=== PATIENT | female | born 2000 | race Caucasian/White ===

== ENCOUNTER 2021-09-16 11:49 | Emergency (ER) | payer SELFPAY | END 2021-09-16 17:00 | disposition home or self-care (01) | LOC: MW.ED 11:49 | DX: R07.81 Pleurodynia (principal) | CPT/HCPCS: 71045; 71045-26; 73030-26-RT; 73030-RT; 73060-26-RT; 73060-RT; 73562-26-RT; 73562-RT; 81001; 81025; 99283-25 ==

== ENCOUNTER 2022-01-11 09:24 | Emergency (ER) | payer SELFPAY | END 2022-01-11 10:28 | disposition home or self-care (01) | LOC: MW.ED 09:24 | DX: L01.00 Impetigo, unspecified (principal); Z86.16 Personal history of COVID-19 | CPT/HCPCS: 99282 ==

== ENCOUNTER 2022-04-05 13:58 | Emergency (ER) | payer SELFPAY | END 2022-04-05 18:20 | disposition home or self-care (01) | LOC: MW.ED 13:58 | DX: S89.92XA Unspecified injury of left lower leg, initial encounter (principal); Z87.828 Personal history of other (healed) physical injury and trauma | CPT/HCPCS: 73562-26-LT; 73562-LT; 99283 ==

== ENCOUNTER 2022-06-13 13:00 | Emergency (ER) | payer SELFPAY ==
[2022-06-13 14:22] LABS: CORONAVIRUS COVID-19 NAA NEGATIVE (NEGATIVE); INFLUENZA A NAA NEGATIVE (NEGATIVE); INFLUENZA B NAA NEGATIVE (NEGATIVE)
== END 2022-06-13 14:34 | disposition home or self-care (01) ==
LOC: MW.ED 13:00
DX: J06.9 Acute upper respiratory infection, unspecified (principal); Z20.822 Contact with and (suspected) exposure to COVID-19
CPT/HCPCS: 0240U; 99283

== ENCOUNTER 2022-10-13 15:43 | Emergency (ER) | payer SELFPAY ==
[2022-10-13 17:04] LABS: BLOOD UREA NITROGEN,BUN 9 mg/dL (7.0-18.0); CARBON DIOXIDE,CO2 23.7 mmol/L (21.0-32.0); CHLORIDE,CL 101 mmol/L (98-107); GLUCOSE RANDOM 97 mg/dL (74-106); POTASSIUM,K 3.9 mmol/L (3.5-5.1); SODIUM,NA 136 mmol/L (136-145)
[2022-10-13 17:08] LABS: ESTIMATED GFR 134 mL/min (>60)
== END 2022-10-14 01:04 | disposition left against medical advice (07) ==
LOC: MW.ED 15:43
DX: O20.0 Threatened abortion (principal); Z3A.01 Less than 8 weeks gestation of pregnancy
CPT/HCPCS: 36415; 76817; 76817-26; 80053; 81001; 84702; 85025; 86900; 86901; 99284

== ENCOUNTER 2023-05-04 13:38 | Emergency (ER) | payer MEDICAID ==
[2023-05-04] MEDS ORDERED: Tetracaine HCl/PF 0.5% 4 ML Bottle EYERT ONE (13:58)
== END 2023-05-04 14:42 | disposition home or self-care (01) ==
LOC: MW.ED 13:38
DX: H57.11 Ocular pain, right eye (principal); Z86.16 Personal history of COVID-19
CPT/HCPCS: 99283; J3490

== ENCOUNTER 2023-05-09 09:35 | Emergency (ER) | payer MEDICAID ==
[2023-05-09 10:46] LABS: CORONAVIRUS COVID-19 NAA NEGATIVE (NEGATIVE); INFLUENZA A NAA NEGATIVE (NEGATIVE); INFLUENZA B NAA NEGATIVE (NEGATIVE)
== END 2023-05-09 11:15 | disposition home or self-care (01) ==
LOC: MW.ED 09:35
DX: J02.9 Acute pharyngitis, unspecified (principal); Z86.16 Personal history of COVID-19; Z20.822 Contact with and (suspected) exposure to COVID-19
CPT/HCPCS: 0240U; 87651; 99283

== ENCOUNTER 2023-05-24 05:15 | Inpatient (IN) | payer MEDICAID ==
[~2023-05-24 05:15] MED LIST: Acetaminophen/oxyCODONE 325-5 MG Tab PO PRN; Albuterol 0.083% 2.5 MG/3 ML Neb Soln NEB PRN; HYDROmorphone 1 MG/ML Syringe IVPUSH PRN; Metoclopramide 10 MG/2 ML SDV IVPUSH PRN; Morphine 2 MG/ML SYRINGE IVPUSH PRN; Naloxone 0.4 MG/ML SDV IVPUSH PRN; Ondansetron 4 MG/2 ML SDV IVPUSH PRN; diphenhydrAMINE 50 MG/ML SDV IVPUSH PRN; droPERidol 5 MG/2 ML SDV IVPUSH PRN; ePHEDrine 50 MG/ML SDV IVPUSH PRN; fentaNYL 100 MCG/2 ML SDV IVPUSH PRN; fentaNYL 50 MCG/ML SDV IVPUSH PRN
[2023-05-24] MEDS ORDERED: Sodium Chloride 0.9% 2.5 ML Syringe FLUSH PRN (05:25)
[2023-05-24] MEDS ORDERED: Citric Acid/Sodium Citrate Solution 30 ML Cup PO ONE (05:25)
[2023-05-24] MEDS ORDERED: Sodium Chloride 0.9% 10 ML Syringe FLUSH PRN (05:25)
[2023-05-24] MEDS ORDERED: Sodium Chloride 0.9% 20 ML SDV IV PRN (05:25)
[2023-05-24] MEDS ORDERED: Lactated Ringers 1,000 ML IV SCH ×2 (05:30→10:30)
[2023-05-24] MEDS ORDERED: Oxytocin/0.9 % Sodium Chloride 30 UNIT/500 ML BAG IV SCH ×2 (05:30→10:30)
[2023-05-24] MEDS ORDERED: ceFAZolin 3 GM in Dextrose 5% in Water 100 ML IV ONE ×2 (05:32)
[2023-05-24 07:02] LABS: MEAN CORPUSCULAR HEMOGLOBIN 27.9 pg (28.0-32.0); MEAN CORPUSCULAR HGB CONC 34.4 g/dL (32.0-36.0); MEAN CORPUSCULAR VOLUME 81.2 fL (83.0-99.0); MEAN PLATELET VOLUME 10.2 fL (9.4-12.3); PLATELET COUNT,PLT 283 K/uL (150-400); RED BLOOD CELL COUNT 3.94 M/uL (4.10-5.30)
[2023-05-24] MEDS ORDERED: Lidocaine 2% 5 ML SDV ONE (07:10)
[2023-05-24] MEDS ORDERED: droPERidol 5 MG/2 ML SDV ONE (07:10)
[2023-05-24] MEDS ORDERED: Phenylephrine 1% 10 MG/ML SDV ONE (07:10)
[2023-05-24] MEDS ORDERED: ceFAZolin 1 GM Vial ONE (07:10)
[2023-05-24] MEDS ORDERED: Dexamethasone 4 MG/ML 5 ML MDV ONE (07:10)
[2023-05-24] MEDS ORDERED: Ropivacaine 0.5% 5 MG/ML 30 ML SDV ONE (07:10)
[2023-05-24] MEDS ORDERED: Ondansetron 4 MG/2 ML SDV ONE (07:10)
[2023-05-24] MEDS ORDERED: Ketorolac 30 MG/ML SDV ONE ×2 (07:10→07:16)
[2023-05-24] MEDS ORDERED: Morphine PF 10 MG/10 ML SDV ONE (07:11)
[2023-05-24] MEDS ORDERED: fentaNYL 100 MCG/2 ML SDV ONE (07:11)
[2023-05-24] MEDS ORDERED: Oxytocin 10 Units/1 ML SDV ONE ×2 (07:15→08:02)
[2023-05-24] MEDS ORDERED: Acetaminophen/oxyCODONE 325-5 MG Tab PO PRN ×3 (07:40→10:19)
[2023-05-24] MEDS ORDERED: ePHEDrine 50 MG/ML SDV IVPUSH PRN (07:40)
[2023-05-24] MEDS ORDERED: fentaNYL 100 MCG/2 ML SDV IVPUSH PRN (07:40)
[2023-05-24] MEDS ORDERED: Ondansetron 4 MG/2 ML SDV IVPUSH PRN ×2 (07:40→10:19)
[2023-05-24] MEDS ORDERED: diphenhydrAMINE 50 MG/ML SDV IVPUSH PRN ×2 (07:40→10:19)
[2023-05-24] MEDS ORDERED: Lanolin 100% Cream 7 GM Tube TOP PRN (10:19)
[2023-05-24] MEDS ORDERED: Methylergonovine 0.2 MG/1 ML Amp IM PRN (10:19)
[2023-05-24] MEDS ORDERED: Misoprostol 200 MCG Tab RECTAL PRN (10:19)
[2023-05-24] MEDS ORDERED: Oxytocin 10 Units/1 ML SDV IM PRN (10:19)
[2023-05-24] MEDS ORDERED: Bisacodyl 10 MG Supp RECTAL PRN (10:19)
[2023-05-24] MEDS: Ketorolac 30 MG/ML SDV IVPUSH SCH ×2 (14:09→20:00)
[2023-05-24] MEDS: Acetaminophen 1,000 MG in Premix Bag 1 BAG IV SCH ×2 (14:10→20:05)
[2023-05-24] MEDS: Docusate Sodium 100 MG Cap PO SCH (20:11)
[2023-05-25] MEDS: Ketorolac 30 MG/ML SDV IVPUSH SCH ×3 (02:25→15:37)
[2023-05-25] MEDS: Acetaminophen 1,000 MG in Premix Bag 1 BAG IV SCH (02:28)
[2023-05-25 06:27] LABS: HEMATOCRIT 30.5 % (37.0-47.0); HEMOGLOBIN 10.3 g/dL (12.0-16.0)
[2023-05-25] MEDS: Docusate Sodium 100 MG Cap PO SCH ×2 (08:21→20:02)
[2023-05-25] MEDS: Ibuprofen 800 MG Tab PO PRN (18:30)
[2023-05-26] MEDS: Ibuprofen 800 MG Tab PO PRN (04:39)
[2023-05-26] MEDS: Docusate Sodium 100 MG Cap PO SCH (09:21)
== END 2023-05-26 11:50 | disposition home or self-care (01) | DRG 788 ==
LOC: MW.OB 05:15
PROVIDERS: ADMIT Obstetrics & Gynecology; ATTEND Obstetrics & Gynecology
PROC: 10D00Z1 Extraction of Products of Conception, Low, Open Approach (ICD-10-PCS; principal; 2023-05-24 08:00)
DX: O34.211 Maternal care for low transverse scar from previous cesarean delivery (principal); Z3A.39 39 weeks gestation of pregnancy; Z37.0 Single live birth
CPT/HCPCS: 36415; 59025; 85014; 85018; 85027; 86592; 86850; 86900; 86901; A9270-GY; J0131; J0690; J1100; J1200; J1790; J1885; J2274; J2371; J2405; J2590; J2795; J3010; J3490; J7120

== ENCOUNTER 2023-09-18 16:40 | Emergency (ER) | payer MEDICAID | END 2023-09-18 17:56 | disposition left against medical advice (07) | LOC: MW.ED 16:40 | DX: Z53.21 Procedure and treatment not carried out due to patient leaving prior to being seen by health care provider (principal) ==

== ENCOUNTER 2024-10-20 09:35 | Emergency (ER) | payer MEDICAID ==
[2024-10-20] MEDS: Dexamethasone 4 MG Tab PO STA (10:41)
== END 2024-10-20 11:21 | disposition home or self-care (01) ==
LOC: MW.ED 09:35
DX: J39.9 Disease of upper respiratory tract, unspecified (principal); Z75.8 Other problems related to medical facilities and other health care; Z79.899 Other long term (current) drug therapy; Z86.16 Personal history of COVID-19
CPT/HCPCS: 87428; 99283; J8540

== ENCOUNTER 2024-11-15 18:10 | Emergency (ER) | payer MEDICAID ==
[2024-11-15 19:17] LABS: APPEARANCE,URINE CLEAR; GLUCOSE,URINE NEGATIVE (NEGATIVE); KETONES,URINE 15 mg/dL (NEGATIVE); LEUKOCYTE ESTERASE,URINE NEGATIVE (NEGATIVE); NITRITE,URINE NEGATIVE (NEGATIVE); OCCULT BLOOD,URINE NEGATIVE (NEGATIVE); PROTEIN,URINE NEGATIVE (NEGATIVE)
[2024-11-15 19:23] LABS: BILIRUBIN,URINE SMALL (NEGATIVE)
[2024-11-15 19:24] LABS: COLOR,URINE DARK YELLOW
[2024-11-15] MEDS: Cyclobenzaprine 10 MG Tab PO ONE (20:15)
[2024-11-15] MEDS: Ibuprofen 600 MG Tab PO ONE (20:16)
== END 2024-11-15 21:30 | disposition home or self-care (01) ==
LOC: MW.ED 18:10
DX: M54.40 Lumbago with sciatica, unspecified side (principal); Z79.899 Other long term (current) drug therapy
CPT/HCPCS: 81003; 81025; 99283; A9270

== ENCOUNTER 2025-01-15 17:50 | Emergency (ER) | payer MEDICAID ==
[2025-01-15] MEDS: cefTRIAXone 500 MG in Lidocaine 1% 1 ML IM ONE (19:30)
[2025-01-15 20:24] LABS: C. TRACHOMATIS BY PCR NOT DETECTED; N. GONORRHOEAE BY PCR DETECTED
== END 2025-01-15 19:37 | disposition left against medical advice (07) ==
LOC: MW.ED 17:50
DX: Z53.21 Procedure and treatment not carried out due to patient leaving prior to being seen by health care provider (principal)
CPT/HCPCS: 81025; 87491; 87591; J0696; J2003

== ENCOUNTER 2025-01-24 13:51 | Observation (INO) | payer MEDICAID ==
[2025-01-24 14:36] LABS: BASOPHILS ABSOLUTE AUTO 0.04 K/uL (0.00-0.20); BASOPHILS PERCENT AUTO 0.6 % (0.0-1.0); EOSINOPHILS ABSOLUTE AUTO 0.08 K/uL (0.00-0.45); EOSINOPHILS PERCENT AUTO 1.3 % (0.0-6.0); HEMATOCRIT 38.3 % (37.0-47.0); HEMOGLOBIN 13.1 g/dL (12.0-16.0); IMMATURE GRAN ABSOLUTE AUTO 0.01 K/uL (0.00-0.05); IMMATURE GRAN PERCENT AUTO 0.2 % (0.0-0.4); LYMPHOCYTES ABSOLUTE AUTO 1.59 K/uL (1.00-4.80); LYMPHOCYTES PERCENT AUTO 25.7 % (24.0-44.0); MEAN CORPUSCULAR HEMOGLOBIN 30.6 pg (28.0-32.0); MEAN CORPUSCULAR HGB CONC 34.2 g/dL (32.0-36.0); MEAN CORPUSCULAR VOLUME 89.5 fL (83.0-99.0); MEAN PLATELET VOLUME 9.8 fL (9.4-12.3); MONOCYTES ABSOLUTE AUTO 0.47 K/uL (0.00-0.80); MONOCYTES PERCENT AUTO 7.6 % (0.0-8.0); NEUTROPHILS ABSOLUTE AUTO 3.99 K/uL (1.80-7.70); NEUTROPHILS PERCENT AUTO 64.6 % (41.0-71.0); PLATELET COUNT,PLT 344 K/uL (150-400); RED BLOOD CELL COUNT 4.28 M/uL (4.10-5.30); WHITE BLOOD CELL COUNT,WBC 6.18 K/uL (3.9-11.3)
[2025-01-24 14:41] LABS: APPEARANCE,URINE CLOUDY; BILIRUBIN,URINE NEGATIVE (NEGATIVE); COLOR,URINE YELLOW; GLUCOSE,URINE NEGATIVE (NEGATIVE); KETONES,URINE NEGATIVE (NEGATIVE); LEUKOCYTE ESTERASE,URINE NEGATIVE (NEGATIVE); NITRITE,URINE NEGATIVE (NEGATIVE); OCCULT BLOOD,URINE LARGE (NEGATIVE); PH,URINE 6.5 (5.0-8.0); PROTEIN,URINE TRACE mg/dL (NEGATIVE); UROBILINOGEN,URINE 0.2 EU/dL (<2.0)
[2025-01-24 14:56] LABS: BACTERIA,URINE 1+ (NEGATIVE); EPITHELIAL CELLS,URINE FEW (NONE-FEW); MUCUS,URINE LIGHT (NONE-MOD); RBC,URINE 25-30 (0-2/HPF); WBC,URINE 0-1 (0-5/HPF)
[2025-01-24 15:05] LABS: A/G RATIO 1.4 (0.9-1.6); ALBUMIN 4.2 g/dL (3.4-5.0); BILIRUBIN TOTAL 0.4 mg/dL (0.2-1.0); CALCIUM 9.2 mg/dL (8.5-10.1); CARBON DIOXIDE,CO2 26.4 mmol/L (21.0-32.0); CREATININE 0.7 mg/dL (0.6-1.0); EST CRCL DRUG DOSING (CG) 100.74 mL/min; POTASSIUM,K 3.8 mmol/L (3.5-5.1); PROTEIN TOTAL,TP 7.2 g/dL (6.4-8.2)
[2025-01-24] MEDS: Sodium Chloride 0.9% 1,000 ML IV ONE (17:29)
[2025-01-24 17:39] LABS: HEMATOCRIT 40.9 % (37.0-47.0); HEMOGLOBIN 13.4 g/dL (12.0-16.0)
[2025-01-24] MEDS ORDERED: Sodium Chloride 0.9% 10 ML Syringe FLUSH PRN (18:34)
[2025-01-24] MEDS ORDERED: Sodium Chloride 0.9% 2.5 ML Syringe FLUSH PRN (18:34)
[2025-01-24] MEDS: Methotrexate PF 50 MG/2 ML SDV IM STA (19:07)
[2025-01-24] MEDS: Ondansetron 4 MG Tab.DIS PO PRN (23:10)
[2025-01-25 06:14] LABS: BASOPHILS ABSOLUTE AUTO 0.04 K/uL (0.00-0.20); BASOPHILS PERCENT AUTO 0.5 % (0.0-1.0); EOSINOPHILS ABSOLUTE AUTO 0.04 K/uL (0.00-0.45); EOSINOPHILS PERCENT AUTO 0.5 % (0.0-6.0); HEMATOCRIT 37.7 % (37.0-47.0); HEMOGLOBIN 12.6 g/dL (12.0-16.0); IMMATURE GRAN ABSOLUTE AUTO 0.02 K/uL (0.00-0.05); IMMATURE GRAN PERCENT AUTO 0.3 % (0.0-0.4); LYMPHOCYTES ABSOLUTE AUTO 1.56 K/uL (1.00-4.80); LYMPHOCYTES PERCENT AUTO 20.2 % (24.0-44.0); MEAN CORPUSCULAR HEMOGLOBIN 29.9 pg (28.0-32.0); MEAN CORPUSCULAR HGB CONC 33.4 g/dL (32.0-36.0); MEAN CORPUSCULAR VOLUME 89.3 fL (83.0-99.0); MONOCYTES ABSOLUTE AUTO 0.62 K/uL (0.00-0.80); NEUTROPHILS ABSOLUTE AUTO 5.43 K/uL (1.80-7.70); NEUTROPHILS PERCENT AUTO 70.5 % (41.0-71.0); PLATELET COUNT,PLT 325 K/uL (150-400); RED BLOOD CELL COUNT 4.22 M/uL (4.10-5.30); WHITE BLOOD CELL COUNT,WBC 7.71 K/uL (3.9-11.3)
[2025-01-26 06:37] LABS: BASOPHILS ABSOLUTE AUTO 0.03 K/uL (0.00-0.20); BASOPHILS PERCENT AUTO 0.5 % (0.0-1.0); EOSINOPHILS ABSOLUTE AUTO 0.19 K/uL (0.00-0.45); HEMATOCRIT 42.4 % (37.0-47.0); HEMOGLOBIN 13.8 g/dL (12.0-16.0); IMMATURE GRAN ABSOLUTE AUTO 0.01 K/uL (0.00-0.05); IMMATURE GRAN PERCENT AUTO 0.2 % (0.0-0.4); LYMPHOCYTES ABSOLUTE AUTO 1.78 K/uL (1.00-4.80); LYMPHOCYTES PERCENT AUTO 28.4 % (24.0-44.0); MEAN CORPUSCULAR HEMOGLOBIN 29.3 pg (28.0-32.0); MEAN CORPUSCULAR HGB CONC 32.5 g/dL (32.0-36.0); MONOCYTES ABSOLUTE AUTO 0.54 K/uL (0.00-0.80); MONOCYTES PERCENT AUTO 8.6 % (0.0-8.0); NEUTROPHILS ABSOLUTE AUTO 3.72 K/uL (1.80-7.70); NEUTROPHILS PERCENT AUTO 59.3 % (41.0-71.0); PLATELET COUNT,PLT 342 K/uL (150-400); RED BLOOD CELL COUNT 4.71 M/uL (4.10-5.30); WHITE BLOOD CELL COUNT,WBC 6.27 K/uL (3.9-11.3)
== END 2025-01-26 15:32 | disposition home or self-care (01) ==
LOC: MW.ED 13:51 → MW.MS 18:34
PROVIDERS: ADMIT Obstetrics & Gynecology; ATTEND Obstetrics & Gynecology
DX: O00.80 Other ectopic pregnancy without intrauterine pregnancy (principal)
CPT/HCPCS: 36415; 76801; 80053; 81001; 84702; 85014; 85018; 85025; 86900; 86901; 96372; 99285; A9270; J7030; 99221; 99231; 99238; G0378

== ENCOUNTER 2025-06-25 13:11 | Emergency (ER) | payer SELFPAY ==
[2025-06-25] MEDS ORDERED: Sodium Chloride 0.9% 2.5 ML Syringe FLUSH PRN (14:12)
[2025-06-25] MEDS ORDERED: Sodium Chloride 0.9% 10 ML Syringe FLUSH PRN (14:12)
[2025-06-25 14:41] LABS: BASOPHILS ABSOLUTE AUTO 0.05 K/uL (0.00-0.20); BASOPHILS PERCENT AUTO 0.6 % (0.0-1.0); EOSINOPHILS ABSOLUTE AUTO 0.13 K/uL (0.00-0.45); EOSINOPHILS PERCENT AUTO 1.5 % (0.0-6.0); IMMATURE GRAN ABSOLUTE AUTO 0.01 K/uL (0.00-0.05); IMMATURE GRAN PERCENT AUTO 0.1 % (0.0-0.4); LYMPHOCYTES ABSOLUTE AUTO 1.84 K/uL (1.00-4.80); LYMPHOCYTES PERCENT AUTO 20.7 % (24.0-44.0); MEAN PLATELET VOLUME 9.4 fL (9.4-12.3); MONOCYTES ABSOLUTE AUTO 0.82 K/uL (0.00-0.80); MONOCYTES PERCENT AUTO 9.2 % (0.0-8.0); NEUTROPHILS ABSOLUTE AUTO 6.03 K/uL (1.80-7.70); NEUTROPHILS PERCENT AUTO 67.9 % (41.0-71.0); NRBC ABSOLUTE 0.00 K/uL (0.00-0.02); NRBC PERCENT 0.0 /100WBC (0.0-0.2); PLATELET COUNT,PLT 363 K/uL (150-400); RED BLOOD CELL COUNT 4.35 M/uL (4.10-5.30); WHITE BLOOD CELL COUNT,WBC 8.88 K/uL (3.9-11.3)
[2025-06-25 14:42] LABS: APPEARANCE,URINE SLT CLOUDY; GLUCOSE,URINE NEGATIVE (NEGATIVE); OCCULT BLOOD,URINE NEGATIVE (NEGATIVE)
[2025-06-25 15:08] LABS: A/G RATIO 1.2 (0.9-1.6); ALANINE AMINOTRANSFERASE,ALT 29.0 IU/L (14-63); ASPARTATE AMNIOTRANSFERASE,AST 17.0 IU/L (15-37); BILIRUBIN TOTAL 0.4 mg/dL (0.2-1.0); BLOOD UREA NITROGEN,BUN 11.0 mg/dL (7.0-18.0); CARBON DIOXIDE,CO2 27.9 mmol/L (21.0-32.0); CHLORIDE,CL 101.0 mmol/L (98-107); CREATININE 0.6 mg/dL (0.6-1.0); EST CRCL DRUG DOSING (CG) 117.54 mL/min; GLUCOSE RANDOM 92.0 mg/dL (74-106); POTASSIUM,K 3.7 mmol/L (3.5-5.1); PROTEIN TOTAL,TP 7.3 g/dL (6.4-8.2); SODIUM,NA 136.0 mmol/L (136-145)
[2025-06-25 15:10] LABS: EPITHELIAL CELLS,URINE FEW (NONE-FEW)
[2025-06-25 15:12] LABS: ESTIMATED GFR 127.0 mL/min (>60)
== END 2025-06-25 17:04 | disposition home or self-care (01) ==
LOC: MW.ED 13:11
DX: O23.41 Unspecified infection of urinary tract in pregnancy, first trimester (principal); N39.0 Urinary tract infection, site not specified; Z3A.01 Less than 8 weeks gestation of pregnancy; Z79.899 Other long term (current) drug therapy
CPT/HCPCS: 36415; 76817; 76817-26; 80053; 81001; 83690; 83735; 84702; 84703; 85025; 86900; 86901; 87086; 99284